=== PATIENT | female | born 1935 | race Caucasian/White ===

== ENCOUNTER 2017-05-14 09:25 | Day surgery (SDC) | payer OTHER ==
[~2017-05-14 09:25] MED LIST: FAMOTIDINE 20 MG INJ; LIDOCAINE 2% (SDV) 5 ML INJ
[2017-05-14] MEDS ORDERED: SOD CHLORIDE 0.9% 1,000 ML IV (13:30)
[2017-05-14] MEDS ORDERED: CEFAZOLIN 2 GM/50 ML (PMX) 50 ML IVPB (13:30)
[2017-05-14] MEDS: BUPIVACAINE 0.25% (MPF) 30 ML INJ (13:58)
[2017-05-14] MEDS ORDERED: ONDANSETRON 4 MG INJ (14:01)
[2017-05-14] MEDS ORDERED: PROPOFOL 20 ML (14:01)
[2017-05-14] MEDS ORDERED: FENTAnyl 50 MCG/ML VIAL (14:01)
[2017-05-14] MEDS ORDERED: DEXAMETHASONE 4 MG/ML 1 ML INJ (14:01)
[2017-05-14] MEDS ORDERED: MIDAZOLAM 1 MG/ML 2 ML INJ (14:01)
[2017-05-14] MEDS ORDERED: CEFAZOLIN 1 GM INJ (14:01)
[2017-05-14] MEDS ORDERED: PHENYLephrine (100 MCG/ML) 5ML SYG (14:03)
== END 2017-05-14 16:29 | disposition home or self-care (01) ==
LOC: SDS 09:25
DX: L72.3 Sebaceous cyst (principal); I10 Essential (primary) hypertension
CPT/HCPCS: 11442; 88305